=== PATIENT | female | born 1940 | race Caucasian/White ===

== ENCOUNTER 2024-04-11 13:36 | Outpatient (CLI) | payer MEDICARE, BC, SELFPAY ==
--- NOTE | 2024-04-11 13:45 | CRLHL7_ITS ---
For Patients: As a result of the Century Cures Act, medical imaging exams and procedure reports are released immediately into your electronic medical record. You may view this report before your referring provider. If you have questions, please contact your health care provider. INDICATION : Spinal stenosis. TECHNIQUE : Cervical spine MRI without contrast. COMPARISON: COMPARISONCervical spine radiographs from 01/29/2024. FINDINGS: Moderate cervical kyphosis. No recent compression fracture or marrow replacing process. Posterior fossa structures are normal. Cervical cord signal is normal. No extraspinal soft tissue abnormalities. Discs/Endplates: There is osseous fusion along the C4-5 interspace, which may be surgical or degenerative. There is advanced disc height loss, disc desiccation and endplate remodeling at C5-6 and C6-7. Trace type 1 reactive marrow changes at these levels. Mild disc degeneration elsewhere. Findings at individual levels as follows: Craniocervical junction: Right C1-2 lateral mass articulation effusion and subchondral bone marrow edema, consistent with active degenerative change. C2-C3: Shallow central protrusion flattens the thecal sac. Ligamentum flavum thickening. Mild spinal canal stenosis. Right-sided low-grade facet arthrosis. Mild right neural foraminal stenosis. No left neural foraminal stenosis or spinal canal stenosis. C3-C4: 5 millimeters grade 1 anterolisthesis. Superimposed shallow central protrusion which contacts the ventral cord. Ligamentum flavum thickening slightly indents the dorsal cord. Moderate spinal canal stenosis. Bilateral uncovertebral and facet arthrosis with mild left and moderate right neural foraminal stenosis. Mild STIR hyperintensity right-sided facet joint, compatible with active degenerative inflammation. C4-C5: Trace retrolisthesis. Shallow disc osteophyte complex mildly flattens the ventral cord. Mild spinal canal stenosis. Bilateral uncovertebral and facet arthrosis with mild left and moderate right neural foraminal stenosis. C5-C6: Irregular disc osteophyte complex mildly flattens the ventral cord. Ligamentum flavum buckling. Moderate spinal canal stenosis. Bilateral uncovertebral arthrosis with mild right and moderate left neural foraminal stenosis. C6-C7: Disc osteophyte complex mildly flattens the ventral cord. Moderate spinal canal stenosis. Bilateral uncovertebral arthrosis with mild right and moderate left neural foraminal stenosis. C7-T1: 3 millimeters anterior listhesis. Bilateral facet arthrosis. Mild left and moderate right neural foraminal stenosis. No spinal canal stenosis. T1-2: A shallow disc osteophyte complex minimally flattens the thecal sac. Bilateral facet arthrosis. Mild bilateral neural foraminal stenosis. No spinal canal stenosis. T2-3: Trace anterolisthesis. Shallow disc osteophyte complex. Bilateral facet arthrosis. Mild bilateral neural foraminal stenosis. No spinal canal stenosis. IMPRESSION: 1. 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 2. Moderate spinal canal stenosis at C3-4, where a shallow central protrusion contacts the cord and ligamentum flavum thickening slightly indents the dorsal cord. Moderate spinal canal stenosis at the C5-6 and C6-7, where disc osteophyte complexes mildly flatten the ventral cord. No cord signal abnormality at any cervical level. 3. Multilevel moderate neural foraminal stenosis was prominent at C3-4 on the right, C4-5 on the right, C5-6 on the left, C6-7 on the left and C7-T1 on the right. Potential impingement of exiting nerve roots at these levels. Dictated by David Phoenix MD @ 04/12/2024 11:10:14 AM (Electronically Signed)
== END 2024-04-11 13:37 | disposition home or self-care (01) ==
LOC: MRI 13:38
PROVIDERS: Visit Provider Family Medicine
DX: M47.812 Spondylosis without myelopathy or radiculopathy, cervical region (principal); M54.2 Cervicalgia; G89.29 Other chronic pain
CPT/HCPCS: 72141